=== PATIENT | female | born 1985 | race Caucasian/White ===

== ENCOUNTER 2018-08-09 11:58 | Emergency (ER) | payer MEDICAID ==
[2018-08-09] MEDS ORDERED: 0.9% SODIUM CHLORIDE 1000 ML IV BAG IV ONE (12:27)
[2018-08-09 12:32] LABS: BASOPHILS % (AUTO) 0.8 % (0.0-5.0); EOSINOPHILS % (AUTO) 1.2 % (0.0-8.0); HEMATOCRIT 41.4 % (36-48); LYMPHOCYTES % (AUTO) 22.4 % (21.0-51.0); MEAN CORPUSCULAR HEMOGLOBIN 31.1 pg (27.0-33.0); MEAN CORPUSCULAR HGB CONC 33.3 g/dL (32.0-36.0); MEAN CORPUSCULAR VOLUME 93.2 fL (79-99); MONOCYTES % (AUTO) 7.4 % (3.0-13.0); NEUTROPHILS % (AUTO) 68.2 % (40.0-77.0); PLATELET COUNT (AUTO) 254 K/uL (130-400); RED BLOOD CELL COUNT(AUTO) 4.44 MIL/uL (4.00-5.50); RED CELL DISTRIBUTION WIDTH 12.9 % (11.0-15.5); WHITE BLOOD COUNT (AUTO) 6.8 K/uL (4.8-10.8)
[2018-08-09 12:51] LABS: ALANINE AMINOTRANSFERASE 21 U/L (12-78); ALBUMIN 3.9 g/dL (3.5-5.0); ASPARTATE AMINOTRANSFERASE 10 U/L (10-37); BILIRUBIN,TOTAL 0.5 mg/dL (0.2-1.0); CARBON DIOXIDE 25 mmol/L (21-32); CHLORIDE 96 mmol/L (101-111); CREATININE 1.1 mg/dL (0.5-1.5); GLOMERULAR FILTR. RATE CALC 60 mL/min (>60); POTASSIUM 4.7 mmol/L (3.5-5.1); SODIUM SERUM 130 mmol/L (136-145); TOTAL PROTEIN, SERUM 7.2 g/dL (6.0-8.3); UREA NITROGEN, BLOOD 13 mg/dL (7-18)
[2018-08-09 12:52] LABS: ACETONE,BLOOD NEGATIVE (NEGATIVE)
[2018-08-09 12:53] LABS: GLUCOSE,RANDOM 635 mg/dL (70-105)
[2018-08-09] MEDS ORDERED: INSULIN HUMULIN R 100 UNIT/ML 3ML ONE (12:58)
[2018-08-09 15:00] LABS: APPEARANCE,URINE Clear (CLEAR); BILIRUBIN,URINE Negative (NEGATIVE); COLOR,URINE Yellow (YELLOW); GLUCOSE, URINE (UA) >=1000 mg/dL (NEGATIVE); KETONES,URINE Trace mg/dL (NEGATIVE); LEUKOCYTE ESTERASE ,URINE Negative (NEGATIVE); NITRATE,URINE Negative (NEGATIVE); OCCULT BLOOD,URINE Negative (NEGATIVE); PROTEIN,URINE Negative (NEGATIVE)
[2018-08-09 15:23] LABS: BACTERIA,URINE Few /HPF (None Seen); RBC,URINE None Seen /HPF (0-1); WBC,URINE 0-1 /HPF (0-1)
== END 2018-08-09 15:08 | disposition home or self-care (01) ==
LOC: EDH 11:58
DX: E11.65 Type 2 diabetes mellitus with hyperglycemia (principal); Z79.4 Long term (current) use of insulin; Z90.89 Acquired absence of other organs
CPT/HCPCS: 36415; 80053; 81001; 82009; 82948 ×2; 85025; 96361; 96374; 99284; J1815; J7030

== ENCOUNTER 2018-08-24 21:01 | Observation (INO) | payer MEDICAID ==
[~2018-08-24] VITALS: Ht 170.2 cm; Wt 86.4 kg
[2018-08-24] MEDS ORDERED: ONDANSETRON HCL 4 MG/2 ML VIAL ONE (21:28)
[2018-08-24 21:30] LABS: BASOPHILS % (AUTO) 0.5 % (0.0-5.0); EOSINOPHILS % (AUTO) 0.5 % (0.0-8.0); LYMPHOCYTES % (AUTO) 26.6 % (21.0-51.0); MEAN CORPUSCULAR HEMOGLOBIN 32.4 pg (27.0-33.0); MEAN CORPUSCULAR VOLUME 95.1 fL (79-99); MONOCYTES % (AUTO) 6.7 % (3.0-13.0); NEUTROPHILS % (AUTO) 65.7 % (40.0-77.0); PLATELET COUNT (AUTO) 193 K/uL (130-400); RED BLOOD CELL COUNT(AUTO) 4.32 MIL/uL (4.00-5.50); RED CELL DISTRIBUTION WIDTH 12.8 % (11.0-15.5); WHITE BLOOD COUNT (AUTO) 8.4 K/uL (4.8-10.8)
[2018-08-24 21:41] LABS: CREATININE 1.3 mg/dL (0.5-1.5); POTASSIUM 4.7 mmol/L (3.5-5.1); TOTAL PROTEIN, SERUM 7.2 g/dL (6.0-8.3)
[2018-08-24 21:48] LABS: ABG BASE EXCESS -11.7 mmol/L (-2.0-3.0); ABG OXYGEN SATURATION 97.4 % (95.0-99.0); ABG PCO2 27 mmHg (32-45)
[2018-08-24] MEDS ORDERED: INSULIN HUMULIN R 100 UNIT/ML 3ML ONE (22:04)
[2018-08-24 22:07] LABS: APPEARANCE,URINE Clear (CLEAR); BILIRUBIN,URINE Negative (NEGATIVE); COLOR,URINE Yellow (YELLOW); GLUCOSE, URINE (UA) >=1000 mg/dL (NEGATIVE); KETONES,URINE >=80 mg/dL (NEGATIVE); LEUKOCYTE ESTERASE ,URINE Negative (NEGATIVE); NITRATE,URINE Negative (NEGATIVE); OCCULT BLOOD,URINE Negative (NEGATIVE); PROTEIN,URINE Negative (NEGATIVE); UROBILINOGEN,URINE 0.2 mg/dL (0.2-1.0)
[2018-08-24 22:09] LABS: HCG,QUAL RESULT NEGATIVE (NEGATIVE)
[2018-08-24] MEDS ORDERED: SODIUM BICARB 50MEQ 50ML VIAL ONE (23:03)
[2018-08-24] MEDS ORDERED: HYDROCODONE/ACETAMINOPHEN 10/325 MG TAB PO PRN (23:45)
[2018-08-24] MEDS ORDERED: SODIUM BICARB 8.4% IV ONE (23:45)
[2018-08-24] MEDS ORDERED: MORPHINE SULFATE 2 MG/ML 1ML SYG IVP PRN (23:45)
[2018-08-24] MEDS ORDERED: SODIUM CHLORIDE 0.9% IV ONE (23:45)
[2018-08-24] MEDS ORDERED: ONDANSETRON HCL MDV 20ML 2 MG/ML VIAL IVP PRN (23:45)
[2018-08-24] MEDS ORDERED: SYRING IV ONE (23:45)
[2018-08-25] VITALS (20 sets, daily range): BP systolic 99–120; BP diastolic 42–78
[2018-08-25] MEDS ORDERED: SODIUM CHLORIDE 0.9% 1000ML 1,000 ML IV SCH
--- NOTE | 2018-08-25 00:30 | NUR ---
Admitted from ER earlier. Oriented to room, call light, bed controls. Insulin infusing at 6 units/hr into patent left forearm 20 g iv. Sodium Bicarb 50 meq in 1000 mls NS hung to infuse at 250 mls/hr. Comfort measures done. Patient voided 800 mls urine per bedpan.
--- NOTE | 2018-08-25 03:00 | NUR ---
Hourly glucometers. Insulin drip being titrated. VSS.
[2018-08-25] MEDS ORDERED: INSU100I14 SQ (03:38)
[2018-08-25] MEDS ORDERED: INSU3INS3 SQ (03:38)
[2018-08-25] MEDS ORDERED: ZIPR40CA24 PO (03:38)
[2018-08-25 03:54] LABS: HEMATOCRIT 36.7 % (36-48); MEAN CORPUSCULAR HEMOGLOBIN 32.4 pg (27.0-33.0); MEAN CORPUSCULAR HGB CONC 35.1 g/dL (32.0-36.0); MEAN CORPUSCULAR VOLUME 92.2 fL (79-99); NUCLEATED RED BLOOD CELLS 0.1 % (0.0-0.19); PLATELET COUNT (AUTO) 219 K/uL (130-400); RED BLOOD CELL COUNT(AUTO) 3.98 MIL/uL (4.00-5.50); RED CELL DISTRIBUTION WIDTH 12.5 % (11.0-15.5); WHITE BLOOD COUNT (AUTO) 9.6 K/uL (4.8-10.8)
--- NOTE | 2018-08-25 04:00 | NUR ---
Insulin drip stopped. Glucometer 125. Sodium Bicarb drip infused. Changed to NS at 100 mls/hr. Anion Gap down to 9. Call placed to Dr Gunter . Will await call back for further orders. Patient cheerful/vss. No c/o pain, discomfort. Call light and needed items placed readily at hand. Encouraged to call prn.
[2018-08-25 04:07] LABS: ALBUMIN 3.5 g/dL (3.5-5.0); BILIRUBIN,TOTAL 0.7 mg/dL (0.2-1.0); CREATININE 1.2 mg/dL (0.5-1.5); POTASSIUM 4.1 mmol/L (3.5-5.1); TOTAL PROTEIN, SERUM 6.5 g/dL (6.0-8.3)
--- NOTE | 2018-08-25 06:10 | NUR ---
Dr Aparicio here to see patient. Full report given. No new orders.
--- NOTE | 2018-08-25 07:00 | NUR ---
Patient status unchanged. Care of patient endorsed to Jonathan VALIENTE
[2018-08-25] MEDS ORDERED: GLUCAGON 1MG KIT 1 MG ML IM PRN (10:15)
[2018-08-25] MEDS ORDERED: DEXTROSE 50%-WATER 50 ML DISP.SYRIN IV PRN (10:15)
[2018-08-25] MEDS ORDERED: POTASSIUM CHLORIDE 20MEQ/100ML 100 ML IV PRN (10:15)
[2018-08-25] MEDS ORDERED: POTASSIUM CHLORIDE 10% ELIXIR 20 MEQ/15 ML UDCUP PO PRN (10:15)
[2018-08-25] MEDS ORDERED: MAGNESIUM 2GM PREMIX 50ML 50 ML IV PRN (10:15)
[2018-08-25] MEDS ORDERED: POTASSIUM CHLORIDE 20 MEQ ERTAB PO PRN (10:15)
[2018-08-25] MEDS ORDERED: INSULIN GLARGINE 100 UNITS/ML 10 ML VIAL SQ SCH (10:15)
[2018-08-25] MEDS ORDERED: LIDOCAINE HCL-MPF 1% 2ML VIAL IVP PRN (10:15)
[2018-08-25] MEDS: INSULIN HUMULIN R 100 UNIT/ML 3ML SQ SCH ×2 (11:30→16:55)
--- NOTE | 2018-08-25 17:51 | NUR ---
cm note met with patient and spouse, pt resides athome with spouse, independent with ambulation and adls, states has medicaid, and uses insulin, self injects, and has glucometer able to check own sugars. dc plan is back to home. [facility] no dc needs. Addendum: 08/25/18 at 1752 by ANDRE LY CM Amended: Links added.
--- NOTE | 2018-08-25 20:42 | NUR ---
AMA PATIENT SIGNED AMA FORM STATED SHE IS NOT BEING FEED PROPERLY. STATED, "I'M STARVING". CHARGE NURSE STEFFANIE CA SPOKE WITH PATIENT REGARDING THE IMPORTANCE OF DIABETIC DIET AND RECEIVING MEDICATIONS. PER PATIENT, STILL WANTS TO GO HOME. DR. JAIN NOTIFIED OF INCIDENT. NO NEW ORDERS AT THIS TIME. 20G PIV TO LEFT FOREARM DISCONTINUED, TIP INTACT. PATIENT/SPOUSE WALKED OUT OF ROOM TO ELEVATORS.
== END 2018-08-25 19:55 | disposition left against medical advice (07) ==
LOC: EDH 21:01 → EDHIP 21:02 → INTOOBSV 21:02 → EDHIP 22:42 → UNDOADMIN 22:42 → EDHIP 08-25 01:09 → 2CH 08-25 01:29 → 3DH 08-25 12:35
PROVIDERS: ADMIT Internal Medicine; ATTEND Internal Medicine
DX: E10.10 Type 1 diabetes mellitus with ketoacidosis without coma (principal); E86.0 Dehydration; F32.9 Major depressive disorder, single episode, unspecified; F41.9 Anxiety disorder, unspecified; F90.9 Attention-deficit hyperactivity disorder, unspecified type; Z53.21 Procedure and treatment not carried out due to patient leaving prior to being seen by health care provider; Z79.4 Long term (current) use of insulin
CPT/HCPCS: 36415 ×2; 36600; 71045; 80053 ×2; 81003; 81025; 82009; 82803; 82948 ×11; 83735; 85025; 85027; 93005; 96361; 96365; 96366; 96372; 99291; G0378 ×17; J1815 ×2; J2405; J3490 ×2; J7030 ×3

== ENCOUNTER 2019-02-03 23:04 | Emergency (ER) | payer MEDICAID ==
[~2019-02-03 23:04] MED LIST: INSU100I14 SQ; INSU3INS3 SQ; ZIPR40CA24 PO
[2019-02-04] MEDS ORDERED: KETOROLAC TROMETHAMINE 60 MG/2 ML VIAL ONE (00:20)
[2019-02-04] MEDS ORDERED: AMOXICILLIN 500 MG CAPSULE PO ONE ×2 (00:20→00:24)
== END 2019-02-04 00:52 | disposition home or self-care (01) ==
LOC: EDH 23:04
DX: K08.89 Other specified disorders of teeth and supporting structures (principal); E10.8 Type 1 diabetes mellitus with unspecified complications; Z98.51 Tubal ligation status; Z72.0 Tobacco use; Z88.8 Allergy status to other drugs, medicaments and biological substances
CPT/HCPCS: 96372; 99283; J1885

== ENCOUNTER 2019-02-15 08:19 | Emergency (ER) | payer MEDICAID | END 2019-02-15 09:13 | disposition home or self-care (01) | LOC: EDH 08:19 | DX: R05 Cough (principal); E10.9 Type 1 diabetes mellitus without complications; F25.9 Schizoaffective disorder, unspecified; Z88.8 Allergy status to other drugs, medicaments and biological substances; Z98.890 Other specified postprocedural states; Z98.51 Tubal ligation status; Z87.891 Personal history of nicotine dependence | CPT/HCPCS: 99281 ==

== ENCOUNTER 2019-02-17 23:14 | Emergency (ER) | payer MEDICAID ==
[2019-02-17] MEDS ORDERED: BENZONATATE 100 MG CAPSULE PO ONE (23:40)
[2019-02-17] MEDS ORDERED: IPRATROPIUM/ALBUTEROL SULFATE 3 ML SOLUTION IH ONE (23:45)
== END 2019-02-18 00:10 | disposition home or self-care (01) ==
LOC: EDH 23:14
DX: J20.9 Acute bronchitis, unspecified (principal); E10.9 Type 1 diabetes mellitus without complications; F25.9 Schizoaffective disorder, unspecified; Z88.8 Allergy status to other drugs, medicaments and biological substances; Z98.51 Tubal ligation status; Z98.890 Other specified postprocedural states
CPT/HCPCS: 94640